=== PATIENT | female | born 1955 | race Caucasian/White ===

== ENCOUNTER 2017-05-14 18:01 | Inpatient (IN) | payer OTHER | END 2017-05-15 19:55 | disposition home or self-care (01) | DRG 189 | LOC: D.ER 18:01 → D.M2 22:40 | DX: J96.01 Acute respiratory failure with hypoxia (principal); I25.10 Atherosclerotic heart disease of native coronary artery without angina pectoris; I10 Essential (primary) hypertension; E11.9 Type 2 diabetes mellitus without complications; E78.5 Hyperlipidemia, unspecified; K21.9 Gastro-esophageal reflux disease without esophagitis; B02.9 Zoster without complications; E83.42 Hypomagnesemia; Z95.0 Presence of cardiac pacemaker; Z95.5 Presence of coronary angioplasty implant and graft ==

== ENCOUNTER → 2017-07-29 08:48 | Outpatient (CLI) | payer OTHER ==
[~2017-07-29] VITALS: Ht 180.3 cm; Wt 123.4 kg
[~2017-07-29 08:48] MED LIST: BAYER CHEWABLE81 MG PO; BENTYL10 MG PO; CO Q-1030 MG PO; COZAAR100 MG PO; CRESTOR10 MG PO; DESERYL100 MG PO; FUROSEMIDE20 MG PO; GABAPENTIN100 MG PO; HYDROCODON-ACE1 EAC7 PO; IPRAT-ALBUT 0.5-3 ML UPD; ISOSORBIDE MONO60 M1 PO; KLOR-CON M2020 MEQ PO; MAG-OXIDE400 MG PO; METFORMIN HCL500 M1 PO; METOPROLOL TART50 MG PO; MULTIPLE VITAMI1 TA1 PO; NIACIN500 MG PO; NITROSTAT0.3 MG SL; OMEPRAZOLE20 M1 PO; OMEPRAZOLE40 MG PO; PLAVIX75 MG PO; SINGULAIR10 MG PO; TAMIFLU75 MG PO; ULTRAM50 MG PO; VIBRAMYCIN 100100 MG PO; VITAMIN D31000 UNIT PO; ZANTAC150 MG PO; ZOVIRAX800 MG PO; ZYRTEC10 MG PO
[2017-07-29 12:30] VITALS: Ht 180.3 cm; Wt 123.4 kg
== END | disposition home or self-care (01) ==
LOC: D.FANS 08:48
DX: E66.01 Morbid (severe) obesity due to excess calories (principal)

== ENCOUNTER → 2017-09-25 07:29 | Outpatient (CLI) | payer OTHER ==
[2017-07-29 12:30] VITALS: BMI 37.9
== END | disposition home or self-care (01) ==
LOC: D.RT 07:29
DX: J44.9 Chronic obstructive pulmonary disease, unspecified (principal)